=== PATIENT | male | born 1955 | race Caucasian/White ===

== ENCOUNTER 2016-11-19 15:08 | Emergency (ER) | payer BC ==
[~2016-11-19] VITALS: Ht 177.8 cm; Wt 109.0 kg
[2016-11-19 15:38] LABS: HEMATOCRIT 42.6 % (38.0-50.0); MCHC 33.8 G/DL (30.0-36.0); MCV 85.9 FL (86-99); MEAN PLAT.VOLUME 9.3 uM^3 (9.0-12.4); PLATELET COUNT 249 K/uL (156-360); RBC DIS.WIDTH-CV 13.4 % (11.8-14.6); RBC DIS.WIDTH-SD 41.5 % (39-53); RED BLOOD COUNT 4.96 M/uL (4.00-5.50); WHITE BLOOD COUNT 7.4 K/uL (4.1-10.2)
[2016-11-19 15:49] LABS: CHLORIDE 107 mEq/L (99-109); POTASSIUM 3.8 mEq/L (3.7-5.4); SODIUM 141 mEq/L (136-147)
[2016-11-19 15:51] LABS: GLUCOSE 122 mg/dL (70-99)
[2016-11-19 15:53] LABS: ANION GAP 9 MEQ/L (2-14); TOTAL BILIRUBIN 0.3 mg/dL (0.0-1.0)
[2016-11-19 15:55] LABS: ALKALINE PHOSPHATASE 72 IU/L (3-129); GFR ESTIMATE (CALCULATED) > 59 mL/min/
[2016-11-19 15:56] LABS: UREA NITROGEN (BUN) 22 mg/dL (9-23)
[2016-11-19 16:01] LABS: TROP-I INTERPRETATION NEGATIVE; TROPONIN-I < 0.01 ng/mL (0.0-0.30)
[2016-11-19 17:53] LABS: TROP-I INTERPRETATION NEGATIVE; TROPONIN-I < 0.01 ng/mL (0.0-0.30)
[2016-11-19 18:38] LABS: ADD MIUA? YES; BILIRUBIN NEGATIVE; BLOOD SMALL; COLOR YELLOW ((YELLOW)); GLUCOSE (STRIP) NEGATIVE; KETONES NEGATIVE; LEUKOCYTES NEGATIVE; NITRITE NEGATIVE; PROTEIN (STRIP) NEGATIVE; SPECIFIC GRAVITY 1.026 (1.000-1.030); UROBILINOGEN 0.2 MG/DL (0.2-1.0)
[2016-11-19 18:47] LABS: BACTERIA NONE SEEN /HPF; EPITHELIAL CELLS RARE /HPF; MUCUS TRACE /LPF; RED BLOOD CELLS 0-5 /HPF (0-5); UCUL ADDED? NO
[2016-11-19 22:53] VITALS: BP 111/67
== END 2016-11-19 22:55 | disposition home or self-care (01) ==
LOC: EME 15:08
PROVIDERS: Emergency Medicine; Nurse Practitioner Family
DX: K80.20 Calculus of gallbladder without cholecystitis without obstruction (principal); R07.9 Chest pain, unspecified
CPT/HCPCS: 71020; 74176; 76705; 80053; 81003; 84484; 85027; 93005; 99281; 99285; J1885

== ENCOUNTER 2017-01-30 11:49 | Day surgery (SDC) | payer BC ==
[~2017-01-30] VITALS: Ht 177.8 cm; Wt 104.3 kg
[2017-01-30 12:49] LABS: EOSINOPHIL (%) 2.2 % (0-5); EOSINOPHIL COUNT 0.2 K/uL (0-0.3); HEMATOCRIT 45.3 % (38.0-50.0); IMMATURE GRANULOCYTE (%) 0.4 % (0.0-0.7); INSTRUMENT ABS NEUTROPHIL CT 3.7 K/uL; LYMPHOCYTE COUNT 2.3 K/uL (1.0-2.8); MCHC 33.6 G/DL (30.0-36.0); MCV 86.3 FL (86-99); MEAN PLAT.VOLUME 8.7 uM^3 (9.0-12.4); MONOCYTE (%) 9.7 % (3-12); MONOCYTE COUNT 0.7 K/uL (0-0.8); NEUTROPHIL (%) 53.8 % (45-76); NEUTROPHIL COUNT 3.7 K/uL (1.8-6.4); PLATELET COUNT 243 K/uL (156-360); RBC DIS.WIDTH-CV 12.8 % (11.8-14.6); RBC DIS.WIDTH-SD 40.1 % (39-53); RED BLOOD COUNT 5.25 M/uL (4.00-5.50); WHITE BLOOD COUNT 6.8 K/uL (4.1-10.2)
[2017-01-30 12:55] VITALS: BP 136/69
[2017-01-30 13:26] LABS: ALKALINE PHOSPHATASE 61 IU/L (3-129); ANION GAP 7 MEQ/L (2-14); CHLORIDE 106 MEQ/L (99-109); GFR ESTIMATE (CALCULATED) > 59 mL/min/; GLUCOSE 101 mg/dL (70-99); SAMPLE HEMOLYSIS CHECK 0; SAMPLE ICTERIC CHECK 0; SAMPLE LIPEMIA CHECK 0; SODIUM 141 MEQ/L (136-147); TOTAL BILIRUBIN 0.7 MG/DL (0.0-1.0); UREA NITROGEN (BUN) 18 mg/dL (9-23)
[2017-01-30 13:36] LABS: INTER. NORMALIZED RATIO 1.1; PROTHROMBIN TIME 10.9 (9.2-11.2); PTT 31.8 (25-32)
[2017-01-30 13:49] LABS: METH RESISTANT S AUREUS PCR POSITIVE (NEGATIVE)
[2017-01-30 13:51] LABS: PROBE CHECK PASS
[2017-01-30] MEDS ORDERED: COLACE100 MG PO ×2 (17:20→17:28)
[2017-01-30] MEDS ORDERED: HYDROCODON-ACE1 EAC7 PO ×2 (17:20→17:28)
[2017-01-30] MEDS ORDERED: NORCO 5/3251 TABLET PO (17:28)
[2017-01-30 18:15] VITALS: BP 163/73
[2017-01-30 19:25] VITALS: BP 124/75
== END 2017-01-30 19:37 | disposition home or self-care (01) ==
LOC: SDC 11:49
PROVIDERS: Thoracic Surgery (Cardiothoracic Vascular Surgery)
PROC: 0FT44ZZ Resection of Gallbladder, Percutaneous Endoscopic Approach (ICD-10-PCS; principal; 2017-01-30)
DX: K80.20 Calculus of gallbladder without cholecystitis without obstruction (principal); I44.7 Left bundle-branch block, unspecified; Z86.010 Personal history of colon polyps; Z87.891 Personal history of nicotine dependence; Z82.49 Family history of ischemic heart disease and other diseases of the circulatory system; Z80.1 Family history of malignant neoplasm of trachea, bronchus and lung; Z80.42 Family history of malignant neoplasm of prostate; Z84.1 Family history of disorders of kidney and ureter; Z83.3 Family history of diabetes mellitus
CPT/HCPCS: 80053; 85025; 85610; 85730; 87641; 88304; J0330; J0690; J1100; J1885; J2250; J2405; J3010

== ENCOUNTER 2017-02-04 10:00 | Emergency (ER) | payer BC ==
[~2017-02-04] VITALS: Ht 177.8 cm; Wt 104.5 kg
[~2017-02-04 10:00] MED LIST: COLACE100 MG PO; HYDROCODON-ACE1 EAC7 PO; NORCO 5/3251 TABLET PO
[2017-02-04 11:07] LABS: CHLORIDE 108 mEq/L (99-109); POTASSIUM 4.3 mEq/L (3.7-5.4); SODIUM 141 mEq/L (136-147)
[2017-02-04 11:08] LABS: GLUCOSE 101 mg/dL (70-99)
[2017-02-04 11:09] LABS: HEMATOCRIT 45.3 % (38.0-50.0); MCH 29.2 PG (29.0-34.0); MCHC 33.8 G/DL (30.0-36.0); MCV 86.5 FL (86-99); MEAN PLAT.VOLUME 9.1 uM^3 (9.0-12.4); PLATELET COUNT 283 K/uL (156-360); RBC DIS.WIDTH-CV 12.8 % (11.8-14.6); RBC DIS.WIDTH-SD 40.1 % (39-53); RED BLOOD COUNT 5.24 M/uL (4.00-5.50); WHITE BLOOD COUNT 9.4 K/uL (4.1-10.2)
[2017-02-04 11:10] LABS: ANION GAP 12 MEQ/L (2-14)
[2017-02-04 11:12] LABS: GFR ESTIMATE (CALCULATED) > 59 mL/min/
[2017-02-04 11:13] LABS: UREA NITROGEN (BUN) 23 mg/dL (9-23)
[2017-02-04 11:19] LABS: TROP-I INTERPRETATION NEGATIVE; TROPONIN-I < 0.01 ng/mL (0.0-0.30)
[2017-02-04 13:39] LABS: TROP-I INTERPRETATION NEGATIVE; TROPONIN-I < 0.01 ng/mL (0.0-0.30)
[2017-02-04 15:02] VITALS: BP 119/69
== END 2017-02-04 15:07 | disposition home or self-care (01) ==
LOC: EME 10:00
PROVIDERS: Emergency Medicine
DX: R07.89 Other chest pain (principal); Z90.49 Acquired absence of other specified parts of digestive tract; Z98.890 Other specified postprocedural states; I44.7 Left bundle-branch block, unspecified; Z87.891 Personal history of nicotine dependence
CPT/HCPCS: 71020; 71275; 80048; 84484; 85027; 93005; 99281; 99285; J7030